=== PATIENT | male | born 1995 | race Caucasian/White ===

== ENCOUNTER 2018-07-30 19:44 | Emergency (ER) | payer SELFPAY ==
[~2018-07-30] VITALS: Ht 177.8 cm; Wt 120.2 kg
--- NOTE | 2018-07-30 20:19 | NUR ---
Dr. Kam at bedside for MSE.
--- NOTE | 2018-07-30 20:40 | NUR ---
Pt out of ER for Xray.
--- NOTE | 2018-07-30 20:52 | NUR ---
Pt back to ER from Xray.
--- NOTE | 2018-07-30 21:14 | NUR ---
Patient discharged to home in stable conditon. Written and verbal after care instructions given. Patient verbalizes understanding of instructions. Pt ambulated out of ER with steady gait, no acute signs of distress, VSS, all belongings taken.
[2018-07-30 21:15] VITALS: BP 138/82
== END 2018-07-30 21:16 | disposition home or self-care (01) ==
LOC: ER 19:44
DX: S16.1XXA Strain of muscle, fascia and tendon at neck level, initial encounter (principal); F17.200 Nicotine dependence, unspecified, uncomplicated; V43.12XA Car passenger injured in collision with other type car in nontraffic accident, initial encounter; Y93.89 Activity, other specified; Y92.410 Unspecified street and highway as the place of occurrence of the external cause; Y99.8 Other external cause status
CPT/HCPCS: 72100; A4663